=== PATIENT | male | born 1940 | race Caucasian/White ===

== ENCOUNTER → 2017-01-22 | Outpatient (CLI) | payer MEDICARE | LOC: HEART 5 08:57 | DX: R06.02 Shortness of breath (principal); I27.2 Other secondary pulmonary hypertension; Z87.891 Personal history of nicotine dependence | CPT/HCPCS: 94010 ==

== ENCOUNTER → 2021-08-31 | Outpatient (CLI) | payer MEDICARE ==
[~2021-08-31] MED LIST: ASPIR 8181 MG PO; ELIQUIS2.5 MG PO; GLUCOPHAGE XR500 MG PO; HYDROCORTISONE30 G5 TD; HYZAAR 50-12.51 EACH PO; IBUPROFEN600 MG PO; LEVAQUIN500 MG PO; LIPITOR TAB 1010 MG PO; METROGEL60 GM TOP; NITROSTAT0.4 MG SL; NORVASC 5 MG TAB5 MG PO; OMEPRAZOLE20 MG PO; TOPROL XL25 MG PO; TYLENOL W/CODEIN1 E1 PO; VOLTAREN100 GM TOP; [UNRECOGNIZED DRUG - OTHER] PO
== END ==
LOC: KOH-I 12:36
DX: M70.52 Other bursitis of knee, left knee (principal); M17.12 Unilateral primary osteoarthritis, left knee
CPT/HCPCS: 73562

== ENCOUNTER → 2022-01-10 | Outpatient (CLI) | payer MEDICARE | LOC: HEART 5 01-02 08:15 | DX: I20.9 Angina pectoris, unspecified (principal); R94.39 Abnormal result of other cardiovascular function study | CPT/HCPCS: 78452; A9502; J2785 ==

== ENCOUNTER → 2022-06-21 | Outpatient (CLI) | payer MEDICARE | LOC: LAB 11:01 | DX: J20.9 Acute bronchitis, unspecified (principal) | CPT/HCPCS: U0002 ==

== ENCOUNTER → 2022-06-22 | Outpatient (CLI) | payer MEDICARE ==
[~2022-06-22] VITALS: Ht 170.2 cm; Wt 88.0 kg
== END ==
LOC: EROP 10:40
DX: U07.1 COVID-19 (principal); Z23 Encounter for immunization
CPT/HCPCS: M0222; Q0222